=== PATIENT | female | born 2000 | race Caucasian/White ===

== ENCOUNTER 2023-03-24 20:25 | Inpatient (IN) | payer MEDICAID ==
[2023-03-24] MEDS ORDERED: Sodium Chloride 0.9% 10 ML Syringe FLUSH PRN (20:37)
[2023-03-24] MEDS ORDERED: Acetaminophen 325 MG Tab PO PRN (20:37)
[2023-03-24] MEDS ORDERED: Ondansetron 4 MG/2 ML SDV IVPUSH PRN (20:37)
[2023-03-24] MEDS ORDERED: Nalbuphine HCl 10 MG/ 1ML Amp IVPUSH PRN (20:37)
[2023-03-24] MEDS ORDERED: Lidocaine 1% 50 ML MDV INJECT PRN (20:37)
[2023-03-24] MEDS ORDERED: Calcium Carbonate 500 MG Tab.Chew PO PRN (20:37)
[2023-03-24] MEDS ORDERED: Oxytocin/Lactated Ringers 30 UNIT/500 ML BAG IV SCH (20:45)
[2023-03-24] MEDS ORDERED: Lactated Ringers 1,000 ML IV SCH (20:45)
[2023-03-24 21:02] LABS: BASOPHILS PERCENT AUTO 0.2 % (0.0-1.0); EOSINOPHILS ABSOLUTE AUTO 0.1 K/mm3 (0.0-0.4); EOSINOPHILS PERCENT AUTO 0.5 % (0.0-6.0); HEMATOCRIT 35.8 % (37.0-47.0); HEMOGLOBIN 12.2 gm/dl (12.0-16.0); IMMATURE GRAN ABSOLUTE AUTO 0.04 K/mm3 (0.00-0.05); IMMATURE GRAN PERCENT AUTO 0.4 % (0.0-0.4); LYMPHOCYTES ABSOLUTE AUTO 2.4 K/mm3 (1.0-4.8); MEAN CORPUSCULAR HEMOGLOBIN 31.4 pg (28.0-32.0); MEAN CORPUSCULAR HGB CONC 34.1 g/dl (32.0-36.0); MEAN PLATELET VOLUME 11.2 fl (9.4-12.3); MONOCYTES ABSOLUTE AUTO 0.9 K/mm3 (0.0-0.8); MONOCYTES PERCENT AUTO 9.4 % (0.0-8.0); NEUTROPHILS ABSOLUTE AUTO 6.3 K/mm3 (1.8-7.7); NEUTROPHILS PERCENT AUTO 64.5 % (41.0-71.0); PLATELET COUNT,PLT 222 K/mm3 (150-400); RED BLOOD CELL COUNT 3.89 M/mm3 (4.10-5.30); WHITE BLOOD CELL COUNT,WBC 9.73 K/mm3 (3.9-11.3)
[2023-03-24] MEDS: Ibuprofen 600 MG Tab PO PRN (23:49)
[2023-03-25] MEDS: Benzocaine/Menthol 20%-0.5% Spray 78 GM Cannister TOP PRN (00:38)
[2023-03-25] MEDS: Witch Hazel Medicated Pads 40/Jar TOP PRN (00:38)
[2023-03-25] MEDS: Acetaminophen 325 MG Tab PO PRN (04:24)
[2023-03-25 07:15] LABS: HEMATOCRIT 35.2 % (37.0-47.0); HEMOGLOBIN 12.1 gm/dl (12.0-16.0); MEAN CORPUSCULAR HEMOGLOBIN 31.8 pg (28.0-32.0); MEAN CORPUSCULAR HGB CONC 34.4 g/dl (32.0-36.0); MEAN CORPUSCULAR VOLUME 92.4 fl (83.0-99.0); MEAN PLATELET VOLUME 11.2 fl (9.4-12.3); PLATELET COUNT,PLT 214 K/mm3 (150-400); RED BLOOD CELL COUNT 3.81 M/mm3 (4.10-5.30); WHITE BLOOD CELL COUNT,WBC 12.25 K/mm3 (3.9-11.3)
== END 2023-03-26 10:47 | disposition home or self-care (01) | DRG 807 ==
LOC: JD.OBCHECK 20:25 → JD.OB 20:33 → JD.OBCHECK 20:38 → OBSVTOIN 22:29 → JD.OB 22:30
PROVIDERS: ADMIT Obstetrics & Gynecology; ATTEND Obstetrics & Gynecology
PROC: 10E0XZZ Delivery of Products of Conception, External Approach (ICD-10-PCS; principal; 2023-03-24)
DX: O80 Encounter for full-term uncomplicated delivery (principal); Z37.0 Single live birth; Z3A.39 39 weeks gestation of pregnancy
CPT/HCPCS: 36415; 59025; 59409; 85025; 85027; 86592; 86850; 86900; 86901; A9270-GY

== ENCOUNTER 2025-01-18 01:16 | Inpatient (IN) | payer MEDICAID ==
[2025-01-18] MEDS: Oxytocin 10 Units/1 ML SDV ONE (02:00)
[2025-01-18] MEDS ORDERED: Sodium Chloride 0.9% 10 ML Syringe FLUSH PRN (02:18)
[2025-01-18] MEDS ORDERED: Ondansetron 4 MG/2 ML SDV IVPUSH PRN (02:18)
[2025-01-18] MEDS ORDERED: Nalbuphine 10 MG/1 ML Vial IVPUSH PRN (02:18)
[2025-01-18] MEDS ORDERED: Acetaminophen/oxyCODONE 325-5 MG Tab PO PRN ×2 (02:20)
[2025-01-18] MEDS ORDERED: Lactated Ringers 1,000 ML IV SCH (02:30)
[2025-01-18] MEDS: Benzocaine/Menthol 20%-0.5% Spray 78 GM Cannister TOP PRN (03:38)
[2025-01-18] MEDS: Witch Hazel Medicated Pads 40/Jar TOP PRN (03:39)
[2025-01-18 08:28] LABS: BASOPHILS ABSOLUTE AUTO 0.0 K/mm3 (0.0-0.2); BASOPHILS PERCENT AUTO 0.2 % (0.0-1.0); EOSINOPHILS ABSOLUTE AUTO 0.0 K/mm3 (0.0-0.4); EOSINOPHILS PERCENT AUTO 0.3 % (0.0-6.0); IMMATURE GRAN ABSOLUTE AUTO 0.10 K/mm3 (0.00-0.05); IMMATURE GRAN PERCENT AUTO 0.8 % (0.0-0.4); LYMPHOCYTES ABSOLUTE AUTO 1.6 K/mm3 (1.0-4.8); LYMPHOCYTES PERCENT AUTO 13.3 % (24.0-44.0); MEAN PLATELET VOLUME 11.1 fl (9.4-12.3); MONOCYTES ABSOLUTE AUTO 0.9 K/mm3 (0.0-0.8); MONOCYTES PERCENT AUTO 7.2 % (0.0-8.0); NEUTROPHILS ABSOLUTE AUTO 9.3 K/mm3 (1.8-7.7); NEUTROPHILS PERCENT AUTO 78.2 % (41.0-71.0); NRBC ABSOLUTE 0.00 (0.00-0.02); NRBC PERCENT 0.0 % (0.0-0.2); PLATELET COUNT,PLT 231 K/mm3 (150-400); RED BLOOD CELL COUNT 3.65 M/mm3 (4.10-5.30); WHITE BLOOD CELL COUNT,WBC 11.91 K/mm3 (3.9-11.3)
[2025-01-18] MEDS ORDERED: Sodium Chloride 0.9% 10 ML Syringe FLUSH SCH (09:00)
== END 2025-01-19 12:25 | disposition home or self-care (01) | DRG 807 ==
LOC: JD.OBCHECK 01:16 → JD.OB 01:18 → JD.OBCHECK 01:26 → OBSVTOIN 01:27 → JD.OB 01:27
PROVIDERS: ADMIT Obstetrics & Gynecology; ATTEND Obstetrics & Gynecology
PROC: 10E0XZZ Delivery of Products of Conception, External Approach (ICD-10-PCS; principal; 2025-01-18)
DX: O99.02 Anemia complicating childbirth (principal); Z37.0 Single live birth; Z3A.39 39 weeks gestation of pregnancy; Z98.890 Other specified postprocedural states
CPT/HCPCS: 36415; 59409; 85025; 86592; A9270-GY